=== PATIENT | male | born 1985 | race Caucasian/White ===

== ENCOUNTER → 2018-03-17 08:57 | Outpatient (POV) | payer BC, SELFPAY | PROVIDERS: Family Provider Emergency Medicine; PCP Emergency Medicine; Visit Provider Dentist | DX: Z00.00 Encounter for general adult medical examination without abnormal findings (principal) ==

== ENCOUNTER 2018-04-14 21:06 | Observation (INO) ==
[2018-04-14 22:00] LABS: Basophils # 0.1 K/mm3 (0-0.2); Basophils % 1.6 % (0.1-2.0); Eosinophils # 0.1 K/mm3 (0.0-0.4); Eosinophils % 2.1 % (0.1-12.0); Hemoglobin 13.2 g/dL (14.1-18.0); Lymphocytes # 2.2 K/mm3 (0.7-4.5); Lymphocytes % 39.7 K/mm3 (10-50); Mean Corpuscular HGB Conc 32.1 g/dL (31.8-35.4); Mean Corpuscular Hemoglobin 27.2 pg (27.0-31.2); Mean Corpuscular Volume 84.7 fl (80-94); Mean Platelet Volume 9.3 fl (7.4-10.4); Monocytes # 0.3 K/mm3 (0.1-1.0); Monocytes % 5.1 % (1.7-9.3); Neutrophils # 2.8 K/mm3 (1.8-7.8); Neutrophils % 51.6 % (37.0-80.0); Platelet Count 213 K/mm3 (142-424); Red Blood Count 4.84 M/mm3 (4.60-6.20); Red Cell Distribution Width 12.6 % (11.5-17.5); White Blood Count 5.4 K/mm3 (4.8-10.8)
[2018-04-14 22:13] LABS: Albumin Level 3.8 gm/dL (3.4-5.0); Anion Gap 15.8 mEq/L (5-15); Bilirubin,Direct 0.2 mg/dL (0.0-0.2); Bilirubin,Indirect 0.7 mg/dL (0.0-0.9); Bilirubin,Total 0.9 mg/dL (0.2-1.0); Calcium 8.7 mg/dL (8.5-10.1); Potassium 3.8 mmoL/L (3.5-5.1); Total Protein,Serum 7.5 gm/dL (6.4-8.2)
[2018-04-14 22:18] LABS: Amylase 19 U/L (25-125)
--- NOTE | 2018-04-15 00:31 | Emergency Department Note ---
ED Disposition Clinical Impression: DKA (diabetic ketoacidoses) Qualifiers: Diabetes mellitus type: type 1 Diabetes mellitus complication detail: without coma Qualified Code(s): E10.10 - Type 1 diabetes mellitus with ketoacidosis without coma Diabetes mellitus, insulin dependent (IDDM), uncontrolled Qualifiers: Diabetes mellitus complication status: with unspecified complications Qualified Code(s): E10.8 - Type 1 diabetes mellitus with unspecified complications; E10.65 - Type 1 diabetes mellitus with hyperglycemia ADHD Qualifiers: Attention deficit-hyperactivity disorder type: unspecified Qualified Code(s): F90.9 - Attention-deficit hyperactivity disorder, unspecified type Disposition: Admitted as Observation Condition on Discharge: Good - Critical Care Critical Care Time: No Attestation: On 04/14/18, the high probability of a clinically significant, sudden or life threatening deterioration of the following system(s) required my full and direct attention, intervention and personal management. The time I documented below is in addition to time spent performing reported procedures but includes the following listed in this critical care notation. Medical Decision Making - Medical Records Medical records reviewed: Yes: I reviewed the patient's medical records. - Reilly Inquiry Pt receiving controlled substance: No Vital Signs: 04/14/18 21:15 04/14/18 21:41 Temperature 99.1 F 98.2 F Temperature Source Oral Oral Pulse Rate [Right Radial] 90 96 H Respiratory Rate 12 18 Blood Pressure [Right Arm] 155/101 159/97 Blood Pressure Mean [Right Arm] 119 117 Blood Pressure Source [Right Arm] Automatic Cuff Automatic Cuff Blood Pressure Position [Right Arm] Supine Sitting 02 Sat by Pulse Oximetry 100 96 Oxygen Delivery Method Room Air Room Air - Lab Data Lab results reviewed: Yes: I reviewed the patient's lab results. Lab Results 04/14/18 21:50: Troponin I < 0.02, Amylase 19 L 04/14/18 21:50: WBC 5.4, RBC 4.84, Hgb 13.2 L, Hct 41.0 L, MCV 84.7, MCH 27.2, MCHC 32.1, RDW 12.6, Plt Count 213, MPV 9.3, Neut % (Auto) 51.6, Lymph % (Auto) 39.7, [place] % (Auto) 5.1, Eos % (Auto) 2.1, Baso % (Auto) 1.6, Neut # (Auto) 2.8 , Lymph # (Auto) 2.2, [place] # (Auto) 0.3, Eos # (Auto) 0.1, Baso # (Auto) 0.1 04/14/18 21:50: Sodium 137, Potassium 3.8, Chloride 103, Carbon Dioxide 22, Anion Gap 15.8 H, BUN 11, Creatinine 1.13, Estimated Creat Clear 82, Estimated GFR 75, Est GFR ( Amer) 91, Glucose 486 H*, Calcium 8.7, Total Bilirubin 0.9, Direct Bilirubin 0.2, Indirect Bilirubin 0.7, AST 14 L, ALT 23, Alkaline Phosphatase 74, Total Protein 7.5, Albumin 3.8, Lipase 67 L 04/14/18 21:50: Lactic Acid 1.4 04/14/18 21:50: Acetone Level Small Result diagrams: 04/14/18 21:50 04/14/18 21:50 Orders (Tests/Meds): ED MEDICATIONS Discontinued Medications Generic Name Dose Route Start Last Admin Trade Name Servandoq PRN Reason Stop Dose Admin Sodium Chloride 1,000 mls @ 999 mls/hr 04/14/18 21:30 04/14/18 21:45 Sod Chlor 0.9% 1000ml Bag IV 04/14/18 22:30 999 mls/hr .Q1H1M JENNY Administration Sodium Chloride 1,000 mls @ 999 mls/hr 04/14/18 23:30 04/14/18 23:23 Sod Chlor 0.9% 1000ml Bag IV 04/15/18 00:30 999 mls/hr .Q1H1M JENNY Administration Sodium Chloride 1,000 mls @ 999 mls/hr 04/15/18 00:45 04/15/18 00:45 Sod Chlor 0.9% 1000ml Bag IV 04/15/18 01:45 999 mls/hr .Q1H1M JENNY Administration Insulin Human Regular 5 unit 04/15/18 00:30 04/15/18 00:44 Humulin R Insulin 100 Units/Ml 10ml Vial IVP 04/15/18 00:31 5 unit ONCE ONE Administration - Radiology Data #1 Image(s): Chest Image Reviewed: Yes I reviewed the patient's radiology image Preliminary Findings: Normal/NAD - CT Data CT Scan: Head Time Received: 02:[address] Reviewed: Yes: I have viewed the radiologist's interpretation Preliminary Findings: Normal/NAD Psych HPI - General Chief Complaint: Psychiatric Symptoms Stated Complaint: phsychiatric Time Seen by Provider: 04/15/18 00:29 Mode of Arrival: EMS Source of Information: Patient, Relative, Medical Record Description of Symptoms (Recalled from ER Triage Doc. by RN): pt was told today by psych that he should not stop taking his concerta for anger issues since wednesday, initially using broken speach that disappears when he gets agitated. says his feet are numb. blood sugar was 439, also did not take his lisinopril today - History of Present Illness HPI Narrative: iddm with change in mental status with dec po intake - he reports being compliant with meds and diet - saw chino and changing meds MD complaint: altered mental status Onset (ago): hour(s) Duration: resolved prior to arrival History of same: No Relieving factors: none Exacerbating factors: none, medication Context: significant life stressor Associated psychiatric symptoms: racing thoughts Treatments prior to arrival: none - Related Data Home Medications Medication Instructions Recorded Confirmed lisinopril 2.5 mg tablet 2.5 mg PO DAILY tab 12/29/17 04/14/18 methylphenidate ER 18 mg 18 mg PO QAM 12/29/17 04/14/18 tablet,extended release 24 hr simvastatin 5 mg tablet 5 mg PO QPM 12/29/17 04/14/18 Insulin Glargine,Hum.rec.anlog 60 unit SUB-Q QAM 01/31/18 04/14/18 [Basaglar Kwikpen U-100] Insulin Regular, Human [Humulin R 10 unit SUB-Q .with each meal 01/31/18 U-500 Kwikpen] Clindamycin HCl [Clindamycin 300mg 300 mg PO Q8H 03/13/18 03/22/18 Cap] Previous Rx's Medication Instructions Recorded Naproxen [Naprosyn 500mg tablet] 500 mg PO BID PRN #20 tab 03/05/18 Naproxen [Naprosyn 500mg tablet] 500 mg PO BID PRN #20 tab 03/22/18 Allergies Allergy/AdvReac Type Severity Reaction Status Date / Time Penicillins [PENICILLINS] Allergy Unknown Verified 03/13/18 12:18 [facility] History I have reviewed the patient's past medical history: Yes Medical History: Reports:: Anxiety, Diabetes Mellitus Type 1, Hyperlipidemia, Hypertension Denies:: Cancer, Diabetes Mellitus Type 2, MRSA Other Surgeries: Yes: No Previous Surgery Amputation: No Fractures: No - Social History Smoking Status: Never smoker Alcohol Intake: never Substance Use Type: denies use Occupational Status: unemployed Housing: apartment Household Members: none - Psychiatric History Expresses thoughts of harming self/others: None Suicide Plan Description: No Plan Pschychiatric History:: Reports:: Anxiety Family Hx:: Diabetes, Hypertension ROS Obtained: Yes All systems reviewed & no additional complaints - Constitutional Constitutional: Denies fever(s) - Eyes Eyes: Denies change in vision - ENT Ears, Nose, Mouth, and Throat: Denies sore throat - Cardiovascular Cardiovascular: Denies chest pain - Respiratory Respiratory: No cough - Gastrointestinal Gastrointestingal: Denies: abdominal pain - Genitourinary Male Genitourinary: Denies flank pain, Denies hematuria - Musculoskeletal Musculoskeletal: Denies joint pain, Denies joint swelling - Integumentary/Breasts Skin/Breast: Denies rash - Neurologic Neurologic: Denies headache(s), Denies seizure-like activity Physical Exam - General General appearance: in no apparent distress - Head Head exam: normocephalic - Eye Eye exam: Present: PERRL, EOMI. Absent: scleral icterus - ENT ENT exam: Present: mucous membranes dry - Neck Neck exam: Present: trachea midline - Respiratory Respiratory exam: Present: normal lung sounds bilaterally. Absent: respiratory distress - Cardiovascular Cardiovascular exam: Present: regular rate. Absent: systolic murmur - Abdominal Exam Abdominal exam: Present: soft - Extremities Exam Extremities exam: Present: full ROM - Back Exam Back exam: Present: normal inspection - Neurological Exam Neurological exam: Present: alert, oriented X3, CN II-XII intact - Psychiatric Psychiatric exam: Present: normal affect - Skin Skin exam: Absent: rash
[2018-04-15 06:43] LABS: Basophils # 0.1 K/mm3 (0-0.2); Basophils % 1.2 % (0.1-2.0); Eosinophils # 0.2 K/mm3 (0.0-0.4); Eosinophils % 3.4 % (0.1-12.0); Lymphocytes # 2.1 K/mm3 (0.7-4.5); Lymphocytes % 40.4 K/mm3 (10-50); Mean Corpuscular HGB Conc 32.7 g/dL (31.8-35.4); Mean Corpuscular Hemoglobin 27.5 pg (27.0-31.2); Mean Corpuscular Volume 84.2 fl (80-94); Monocytes # 0.3 K/mm3 (0.1-1.0); Monocytes % 5.4 % (1.7-9.3); Neutrophils # 2.6 K/mm3 (1.8-7.8); Neutrophils % 49.6 % (37.0-80.0); Platelet Count 206 K/mm3 (142-424); Red Cell Distribution Width 12.7 % (11.5-17.5); White Blood Count 5.2 K/mm3 (4.8-10.8)
[2018-04-15 06:45] LABS: Anion Gap 9.1 mEq/L (5-15); Blood Urea Nitrogen 8 mg/dL (7-18); Carbon Dioxide 24 mmol/L (21.0-32.0); Chloride 113 mmol/L (98-107); Glucose 187 mg/dL (74-106); Potassium 3.1 mmoL/L (3.5-5.1); Sodium 143 mmol/L (136-145)
[2018-04-15 07:00] LABS: Calcium 7.4 mg/dL (8.5-10.1)
[2018-04-15 07:02] LABS: Hematocrit 35.7 % (42.0-52.0); Hemoglobin 11.6 g/dL (14.1-18.0)
[2018-04-15 07:21] LABS: Acetone, Serum (Rapid) None Detected (None Detect)
[2018-04-15 08:32] VITALS: BP 153/93
--- NOTE | 2018-04-15 08:40 | H&P/Discharge Summary ---
General - General Admission date:: 04/15/18 Discharge date: 04/15/18 *Admission Date: 04/15/18 *Chief complaint: dka *History of present illness: this wm who has iddm and reported compliance with diet and meds presented to ed with change in mental status and elevated glu- he had seen his pschy and meds were changed - he has no fever or rash - [facility] History I have reviewed the patient's past medical history: Yes Medical History: Reports:: Anxiety, Diabetes Mellitus Type 1, Hyperlipidemia, Hypertension Denies:: Cancer, Diabetes Mellitus Type 2, MRSA Other Surgeries: Yes: No Previous Surgery Amputation: No Fractures: No - *Social History Smoking Status: Never smoker Alcohol Intake: never Substance Use Type: denies use Occupational Status: unemployed Housing: apartment Household Members: none - Psychiatric History Expresses thoughts of harming self/others: None Suicide Plan Description: No Plan Pschychiatric History:: Reports:: Anxiety *Family Hx:: Diabetes, Hypertension Review of Systems - Review of Systems Review of systems:: pertinent systems reviewed and negative unless documented below - Constitutional Denies headache(s) - Eyes Denies change in vision - ENT Denies sore throat - *Cardiovascular Denies chest pain at rest - *Respiratory Denies cough - *Gastrointestinal Denies vomiting - *Genitourinary Denies blood in urine - *Musculoskeletal Denies joint pain, Denies joint swelling - Integumentary/Breasts Denies rash - *Neurologic Denies headache(s), Denies seizure-like activity - Psychiatric Reports anxiety Exam Vital signs and Labs for Last 24 Hours: Temp Pulse Resp BP Pulse Ox 97.8 F 104 H 18 153/93 98 04/15/18 08:00 04/15/18 08:00 04/15/18 08:00 04/15/18 08:00 04/15/18 08:00 Laboratory Results - last 24 hr 04/14/18 21:50: Troponin I < 0.02, Amylase 19 L 04/14/18 21:50: WBC 5.4, RBC 4.84, Hgb 13.2 L, Hct 41.0 L, MCV 84.7, MCH 27.2, MCHC 32.1, RDW 12.6, Plt Count 213, MPV 9.3, Neut % (Auto) 51.6, Lymph % (Auto) 39.7, [place] % (Auto) 5.1, Eos % (Auto) 2.1, Baso % (Auto) 1.6, Neut # (Auto) 2.8 , Lymph # (Auto) 2.2, [place] # (Auto) 0.3, Eos # (Auto) 0.1, Baso # (Auto) 0.1 04/14/18 21:50: Sodium 137, Potassium 3.8, Chloride 103, Carbon Dioxide 22, Anion Gap 15.8 H, BUN 11, Creatinine 1.13, Estimated Creat Clear 82, Estimated GFR 75, Est GFR ( Amer) 91, Glucose 486 H*, Calcium 8.7, Total Bilirubin 0.9, Direct Bilirubin 0.2, Indirect Bilirubin 0.7, AST 14 L, ALT 23, Alkaline Phosphatase 74, Total Protein 7.5, Albumin 3.8, Lipase 67 L 04/14/18 21:50: Lactic Acid 1.4 04/14/18 21:50: Acetone Level Small 04/15/18 01:40: Troponin I < 0.02 04/15/18 01:47: POC Glucose 119 H 04/15/18 01:50: Acetone Level None detected 04/15/18 05:28: POC Glucose 173 H 04/15/18 05:59: WBC 5.2, RBC 4.20 L, Hgb 11.6 L D, Hct 35.7 L, MCV 84.2, MCH 27.5, MCHC 32.7, RDW 12.7, Plt Count 206, MPV 9.0, Neut % (Auto) 49.6, Lymph % ( Auto) 40.4, [place] % (Auto) 5.4, Eos % (Auto) 3.4, Baso % (Auto) 1.2, Neut # (Auto ) 2.6, Lymph # (Auto) 2.1, [place] # (Auto) 0.3, Eos # (Auto) 0.2, Baso # (Auto) 0.1 04/15/18 05:59: Sodium 143, Potassium 3.1 L, Chloride 113 H, Carbon Dioxide 24, Anion Gap 9.1, BUN 8 D, Creatinine 0.79 D, Estimated Creat Clear 123, Estimated GFR 114, Est GFR ( Amer) 138 D, Glucose 187 H D, Calcium 7.4 L D, Acetone Level None detected I & O for Last 24 hours: Intake & Output 04/12/18 04/13/18 04/14/18 04/15/18 11:59 11:59 11:59 11:59 Intake Total 394 / 394 Balance 394 / 394 Weight 142 lb 4 oz - *Routine HEENT Exam Head: Present: normocephalic Eye: Present: EOMI, PERRL ENT: Present: mucous membranes dry - *Routine Neck Exam Present: supple - *Routine Respiratory Exam Present: CTA bilaterally - *Routine Cardiovascular Exam Present: murmur - *Routine Abdominal Exam Present: soft - *Routine Skin Exam Present: intact - *Routine Neurological Exam Present: alert, oriented X3, CN II-XII intact - Routine Psychiatric Exam Present: normal affect Hospital Course Hospital Course: who has been doing better with ivf and has stable labs this am Results Labs on day of discharge: Labs from last 24 hours 04/15/18 04/15/18 04/15/18 05:59 05:59 05:28 WBC 5.2 RBC 4.20 L Hgb 11.6 L D Hct 35.7 L MCV 84.2 MCH 27.5 MCHC 32.7 RDW 12.7 Plt Count 206 MPV 9.0 Neut % (Auto) 49.6 Lymph % (Auto) 40.4 [place] % (Auto) 5.4 Eos % (Auto) 3.4 Baso % (Auto) 1.2 Neut # (Auto) 2.6 Lymph # (Auto) 2.1 [place] # (Auto) 0.3 Eos # (Auto) 0.2 Baso # (Auto) 0.1 Sodium 143 Potassium 3.1 L Chloride 113 H Carbon Dioxide 24 Anion Gap 9.1 BUN 8 D Creatinine 0.79 D Estimated Creat Clear 123 Estimated GFR 114 Est GFR ( Amer) 138 D Glucose 187 H D POC Glucose 173 H Lactic Acid Calcium 7.4 L D Total Bilirubin Direct Bilirubin Indirect Bilirubin AST ALT Alkaline Phosphatase Troponin I Total Protein Albumin Amylase Lipase Acetone Level None detected 04/15/18 04/15/18 04/15/18 01:50 01:47 01:40 WBC RBC Hgb Hct MCV MCH MCHC RDW Plt Count MPV Neut % (Auto) Lymph % (Auto) [place] % (Auto) Eos % (Auto) Baso % (Auto) Neut # (Auto) Lymph # (Auto) [place] # (Auto) Eos # (Auto) Baso # (Auto) Sodium Potassium Chloride Carbon Dioxide Anion Gap BUN Creatinine Estimated Creat Clear Estimated GFR Est GFR ( Amer) Glucose POC Glucose 119 H Lactic Acid Calcium Total Bilirubin Direct Bilirubin Indirect Bilirubin AST ALT Alkaline Phosphatase Troponin I < 0.02 Total Protein Albumin Amylase Lipase Acetone Level None detected 04/14/18 04/14/18 04/14/18 21:50 21:50 21:50 WBC RBC Hgb Hct MCV MCH MCHC RDW Plt Count MPV Neut % (Auto) Lymph % (Auto) [place] % (Auto) Eos % (Auto) Baso % (Auto) Neut # (Auto) Lymph # (Auto) [place] # (Auto) Eos # (Auto) Baso # (Auto) Sodium 137 Potassium 3.8 Chloride 103 Carbon Dioxide 22 Anion Gap 15.8 H BUN 11 Creatinine 1.13 Estimated Creat Clear 82 Estimated GFR 75 Est GFR ( Amer) 91 Glucose 486 H* POC Glucose Lactic Acid 1.4 Calcium 8.7 Total Bilirubin 0.9 Direct Bilirubin 0.2 Indirect Bilirubin 0.7 AST 14 L ALT 23 Alkaline Phosphatase 74 Troponin I Total Protein 7.5 Albumin 3.8 Amylase Lipase 67 L Acetone Level Small 04/14/18 04/14/18 21:50 21:50 WBC 5.4 RBC 4.84 Hgb 13.2 L Hct 41.0 L MCV 84.7 MCH 27.2 MCHC 32.1 RDW 12.6 Plt Count 213 MPV 9.3 Neut % (Auto) 51.6 Lymph % (Auto) 39.7 [place] % (Auto) 5.1 Eos % (Auto) 2.1 Baso % (Auto) 1.6 Neut # (Auto) 2.8 Lymph # (Auto) 2.2 [place] # (Auto) 0.3 Eos # (Auto) 0.1 Baso # (Auto) 0.1 Sodium Potassium Chloride Carbon Dioxide Anion Gap BUN Creatinine Estimated Creat Clear Estimated GFR Est GFR ( Amer) Glucose POC Glucose Lactic Acid Calcium Total Bilirubin Direct Bilirubin Indirect Bilirubin AST ALT Alkaline Phosphatase Troponin I < 0.02 Total Protein Albumin Amylase 19 L Lipase Acetone Level DS: Diagnosis - Discharge Diagnosis (1) DKA (diabetic ketoacidoses) Status: Acute (2) Diabetes mellitus, insulin dependent (IDDM), uncontrolled Status: Acute (3) ADHD Status: Chronic Discharge Medications Discharge Medications: Home Medications Medication Instructions Recorded Confirmed Type lisinopril 2.5 mg tablet 2.5 mg PO DAILY tab 12/29/17 04/14/18 History methylphenidate ER 18 mg 18 mg PO QAM 12/29/17 04/14/18 History tablet,extended release 24 hr simvastatin 5 mg tablet 5 mg PO QPM 12/29/17 04/14/18 History Insulin Glargine,Hum.rec.anlog 60 unit SUB-Q QAM 01/31/18 04/14/18 History [Basaglar Kwikpen U-100] Insulin Regular, Human [Humulin R 10 unit SUB-Q .with each meal 01/31/18 History U-500 Kwikpen] Clindamycin HCl [Clindamycin 300mg 300 mg PO Q8H 03/13/18 03/22/18 History Cap] Disposition Disposition: Home, Self-Care
== END 2018-04-15 09:24 | disposition home or self-care (01) ==
LOC: ER 21:06 → 2ND 21:06
PROVIDERS: ADMIT Emergency Medicine; ATTEND Emergency Medicine
CPT/HCPCS: 70450; 71020; 71046; 80048; 80076; 82009; 82150; 82962; 83605; 83690; 84484; 85025; 93005; 96365; 96367; 96375; 99284; G0378

== ENCOUNTER → 2018-05-30 14:28 | Outpatient (REF) | payer BC, SELFPAY ==
[2018-05-30 18:41] LABS: Basophils # 0.1 K/mm3 (0-0.2); Basophils % 1.1 % (0.1-2.0); Eosinophils # 0.1 K/mm3 (0.0-0.4); Eosinophils % 1.2 % (0.1-12.0); Hemoglobin 15.8 g/dL (14.1-18.0); Lymphocytes # 1.3 K/mm3 (0.7-4.5); Lymphocytes % 21.6 K/mm3 (10-50); Mean Corpuscular Hemoglobin 28.2 pg (27.0-31.2); Mean Corpuscular Volume 85.6 fl (80-94); Mean Platelet Volume 10.6 fl (7.4-10.4); Monocytes # 0.3 K/mm3 (0.1-1.0); Monocytes % 5.4 % (1.7-9.3); Neutrophils # 4.3 K/mm3 (1.8-7.8); Neutrophils % 70.8 % (37.0-80.0); Platelet Count 317 K/mm3 (142-424); Red Blood Count 5.61 M/mm3 (4.60-6.20); Red Cell Distribution Width 13.1 % (11.5-17.5); White Blood Count 6.1 K/mm3 (4.8-10.8)
[2018-05-30 19:00] LABS: Hemoglobin A1C 11.7 % (0.0-7.0)
[2018-05-30 19:03] LABS: Alanine Aminotransferase 32 U/L (12-78); Albumin Level 4.1 gm/dL (3.4-5.0); Alkaline Phosphatase 95 U/L (46-116); Anion Gap 15.5 mEq/L (5-15); Aspartate Amino Transferase 16 U/L (15-37); Bilirubin,Total 0.6 mg/dL (0.2-1.0); Blood Urea Nitrogen 10 mg/dL (7-18); Calcium 9.4 mg/dL (8.5-10.1); Carbon Dioxide 26 mmol/L (21.0-32.0); Chloride 97 mmol/L (98-107); Chol/HDL Ratio 3.7 (1-3.5); Cholesterol 161 mg/dL (140-200); Creatinine,Serum 1.21 mg/dL (0.70-1.30); Estimated Glomerular Filt Rate 69 ml/min (>60); GFR (African American) 84 ML/MIN (>60); Globulin 4.1 gm/dl (1.3-3.2); HDL Cholesterol 43 mg/dL (27-67); LDL Cholesterol 90 mg/dL (0-130); Potassium 4.5 mmoL/L (3.5-5.1); Sodium 134 mmol/L (136-145); T4 (Thyroxine) 10.4 ug/dl (4.7-13.3); Thyroid Stimulating Hormone 0.73 uIU/ml (0.358-3.740); Total Protein,Serum 8.2 gm/dL (6.4-8.2); Triglycerides 141 mg/dL (30-200); VLDL Cholesterol 28 mg/dL (0-40)
[2018-05-30 19:22] LABS: Glucose 526 mg/dL (74-106)
[2018-06-01 10:15] LABS: Creatinine, Urine 103.9 mg/dL (Not Estab.)
[2018-06-01 14:52] LABS: Vitamin D 25 Hydroxy 21.8 ng/mL (30.0-100.0)
[2018-06-01 14:53] LABS: Microalbumin, Urine 685.4 ug/mL (Not Estab.)
== END ==
LOC: LAB 14:28
PROVIDERS: Visit Provider Nurse Practitioner Family
DX: E11.9 Type 2 diabetes mellitus without complications (principal)
CPT/HCPCS: 80053; 80061; 82043; 82570; 82652; 83036; 84436; 84443; 85025

== ENCOUNTER → 2018-11-18 13:23 | Outpatient (CLI) | payer BC, SELFPAY ==
[2018-11-18 13:35] LABS: Basophils # 0.1 K/mm3 (0-0.2); Basophils % 1.5 % (0.1-2.0); Eosinophils # 0.1 K/mm3 (0.0-0.4); Eosinophils % 1.9 % (0.1-12.0); Hematocrit 44.8 % (42.0-52.0); Hemoglobin 14.5 g/dL (14.1-18.0); Lymphocytes # 1.6 K/mm3 (0.7-4.5); Lymphocytes % 32.6 % (10-50); Mean Corpuscular HGB Conc 32.3 g/dL (31.8-35.4); Mean Corpuscular Volume 83.8 fl (80-94); Mean Platelet Volume 8.9 fl (7.4-10.4); Monocytes # 0.3 K/mm3 (0.1-1.0); Monocytes % 5.3 % (1.7-9.3); Neutrophils # 2.9 K/mm3 (1.8-7.8); Neutrophils % 58.6 % (37.0-80.0); Platelet Count 306 K/mm3 (142-424); Red Blood Count 5.35 M/mm3 (4.60-6.20); White Blood Count 4.9 K/mm3 (4.8-10.8)
[2018-11-18 13:47] LABS: Hemoglobin A1C 9.9 % (0.0-7.0)
[2018-11-18 14:26] LABS: Alanine Aminotransferase 65 U/L (12-78); Albumin Level 3.3 gm/dL (3.4-5.0); Albumin/Globulin Ratio 0.9 (1.1-1.8); Alkaline Phosphatase 79 U/L (46-116); Anion Gap 12.2 mEq/L (5-15); Aspartate Amino Transferase 34 U/L (15-37); Bilirubin,Total 0.5 mg/dL (0.2-1.0); Blood Urea Nitrogen 9 mg/dL (7-18); Calcium 9.3 mg/dL (8.5-10.1); Carbon Dioxide 30 mmol/L (21.0-32.0); Chloride 102 mmol/L (98-107); Creatinine,Serum 0.98 mg/dL (0.70-1.30); Estimated Glomerular Filt Rate 89 ml/min (>60); GFR (African American) 107 ML/MIN (>60); Globulin 3.7 gm/dl (1.3-3.2); Glucose 194 mg/dL (74-106); Potassium 4.2 mmoL/L (3.5-5.1); Sodium 140 mmol/L (136-145); T4 (Thyroxine) 8.8 ug/dl (4.7-13.3); Thyroid Stimulating Hormone 0.57 uIU/ml (0.358-3.740)
[2018-11-22 09:53] LABS: Vitamin D 25 Hydroxy 7.1 ng/mL (30.0-100.0)
== END ==
PROVIDERS: Visit Provider Emergency Medicine
DX: E11.9 Type 2 diabetes mellitus without complications (principal)
CPT/HCPCS: 80053; 82652; 83036; 84436; 84443; 85025

== ENCOUNTER 2019-01-09 10:00 | Outpatient (RCR) | payer BC, SELFPAY | END 2019-01-31 09:28 | disposition home or self-care (01) | LOC: PT 10:00 | PROVIDERS: Visit Provider Nurse Practitioner Family | DX: G44.209 Tension-type headache, unspecified, not intractable (principal) | CPT/HCPCS: 97110; 97140; 97163 ==

== ENCOUNTER → 2019-01-09 13:53 | Outpatient (POV) | payer BC, SELFPAY | PROVIDERS: Visit Provider Specialist | DX: M79.641 Pain in right hand (principal) | CPT/HCPCS: 95886; 95908 ==

== ENCOUNTER → 2019-06-21 11:18 | Outpatient (CLI) | payer BC, SELFPAY ==
[2019-06-21 14:12] LABS: Basophils # 0.1 K/mm3 (0-0.2); Basophils % 0.7 % (0.1-2.0); Eosinophils # 0.3 K/mm3 (0.0-0.4); Eosinophils % 4.9 % (0.1-12.0); Hematocrit 38.4 % (42.0-52.0); Hemoglobin 12.5 g/dL (14.1-18.0); Lymphocytes % 29.3 % (10-50); Mean Corpuscular HGB Conc 32.5 g/dL (31.8-35.4); Mean Corpuscular Hemoglobin 28.5 pg (27.0-31.2); Mean Corpuscular Volume 87.5 fl (80-94); Mean Platelet Volume 8.9 fl (7.4-10.4); Monocytes # 0.4 K/mm3 (0.1-1.0); Monocytes % 6.5 % (1.7-9.3); Neutrophils % 58.6 % (37.0-80.0); Platelet Count 302 K/mm3 (142-424); Red Blood Count 4.38 M/mm3 (4.60-6.20); Red Cell Distribution Width 13.3 % (11.5-17.5); White Blood Count 6.9 K/mm3 (4.8-10.8)
[2019-06-21 15:23] LABS: Alanine Aminotransferase 51 U/L (12-78); Albumin Level 3.3 gm/dL (3.4-5.0); Albumin/Globulin Ratio 0.9 (1.1-1.8); Alkaline Phosphatase 73 U/L (46-116); Anion Gap 13.6 mEq/L (5-15); Aspartate Amino Transferase 29 U/L (15-37); Bilirubin,Total 0.3 mg/dL (0.2-1.0); Blood Urea Nitrogen 12 mg/dL (7-18); Calcium 9.1 mg/dL (8.5-10.1); Carbon Dioxide 27 mmol/L (21.0-32.0); Chloride 101 mmol/L (98-107); Creatinine,Serum 1.08 mg/dL (0.70-1.30); Estimated Glomerular Filt Rate 79 ml/min (>60); Free Thyroxine Index 3.1 ug/dL (5.93-13.13); GFR (African American) 95 ML/MIN (>60); Globulin 3.5 gm/dl (1.3-3.2); Glucose 243 mg/dL (74-106); Potassium 4.6 mmoL/L (3.5-5.1); Sodium 137 mmol/L (136-145); T4 (Thyroxine) 8.7 ug/dl (4.7-13.3); Total Protein,Serum 6.8 gm/dL (6.4-8.2); Triiodothryronine (T3) Uptake 36 % (31-39)
[2019-06-21 16:00] LABS: Amphetamine/Metha Screen,Urine Negative ng/mL (<1000); Barbiturates Screen,Urine Negative ng/mL (<200); Benzodiazepines Screen,Urine Negative ng/mL (<200); Cannabinoid Screen,Urine Negative ng/mL (<50); Cocaine Screen,Urine Negative ng/mL (<300); Methadone Screen,Urine Negative ng/mL (<300); Opiate Screen,Urine Negative ng/mL (<300); Phencyclidine Screen,Urine Negative ng/mL (<25)
== END ==
PROVIDERS: PCP Emergency Medicine; Visit Provider Nurse Practitioner Psychiatric/Mental Health
DX: F90.9 Attention-deficit hyperactivity disorder, unspecified type (principal); F33.0 Major depressive disorder, recurrent, mild
CPT/HCPCS: 36415; 80053; 80305; 84436; 84443; 84479; 85025

== ENCOUNTER → 2019-06-29 13:42 | Outpatient (CLI) | payer BC, SELFPAY ==
--- NOTE | 2019-06-29 14:01 | ECG_ITS ---
APPROVED REPORT Exam: Resting ECG HR:98 bpm ECG Measurements Heart Rate 98 AXES [place] 122 P 55 QRSd 88 QRS 35 QT 352 T 65 QTc 449 <Conclusion> Normal sinus rhythm Normal ECG Electronically signed by : Timur Saha, 06/30/2019 09:44:47
== END ==
PROVIDERS: PCP Emergency Medicine; Visit Provider Nurse Practitioner Psychiatric/Mental Health
DX: F90.1 Attention-deficit hyperactivity disorder, predominantly hyperactive type (principal)
CPT/HCPCS: 93005

== ENCOUNTER → 2019-06-29 17:13 | Outpatient (CLI) | payer BC, SELFPAY ==
[2019-06-29 17:34] LABS: Basophils # 0.1 K/mm3 (0-0.2); Basophils % 1.3 % (0.1-2.0); Eosinophils # 0.2 K/mm3 (0.0-0.4); Eosinophils % 4.4 % (0.1-12.0); Hematocrit 41.5 % (42.0-52.0); Hemoglobin 13.1 g/dL (14.1-18.0); Lymphocytes # 1.6 K/mm3 (0.7-4.5); Lymphocytes % 30.5 % (10-50); Mean Corpuscular HGB Conc 31.5 g/dL (31.8-35.4); Mean Corpuscular Hemoglobin 27.5 pg (27.0-31.2); Mean Corpuscular Volume 87.1 fl (80-94); Mean Platelet Volume 8.5 fl (7.4-10.4); Monocytes # 0.3 K/mm3 (0.1-1.0); Monocytes % 4.6 % (1.7-9.3); Neutrophils # 3.2 K/mm3 (1.8-7.8); Neutrophils % 59.1 % (37.0-80.0); Platelet Count 308 K/mm3 (142-424); Red Blood Count 4.76 M/mm3 (4.60-6.20); Red Cell Distribution Width 14.4 % (11.5-17.5); White Blood Count 5.4 K/mm3 (4.8-10.8)
[2019-06-29 17:51] LABS: Alanine Aminotransferase 28 U/L (12-78); Albumin Level 3.5 gm/dL (3.4-5.0); Albumin/Globulin Ratio 0.9 (1.1-1.8); Alkaline Phosphatase 68 U/L (46-116); Aspartate Amino Transferase 14 U/L (15-37); Bilirubin,Total 0.5 mg/dL (0.2-1.0); Carbon Dioxide 30 mmol/L (21.0-32.0); Chloride 102 mmol/L (98-107); Chol/HDL Ratio 4.4 (1-3.5); Cholesterol 182 mg/dL (140-200); Creatinine,Serum 1.25 mg/dL (0.70-1.30); Estimated Glomerular Filt Rate 67 ml/min (>60); GFR (African American) 80 ML/MIN (>60); Globulin 3.9 gm/dl (1.3-3.2); HDL Cholesterol 41 mg/dL (27-67); LDL Cholesterol 121 mg/dL (0-130); Potassium 4.4 mmoL/L (3.5-5.1); T4 (Thyroxine) 10.2 ug/dl (4.7-13.3); Thyroid Stimulating Hormone 0.55 uIU/ml (0.358-3.740); Total Protein,Serum 7.4 gm/dL (6.4-8.2); Triglycerides 101 mg/dL (30-200); VLDL Cholesterol 20 mg/dL (0-40)
[2019-06-29 18:11] LABS: Calcium 9.2 mg/dL (8.5-10.1); Glucose 158 mg/dL (74-106)
[2019-06-29 18:32] LABS: Anion Gap 11.4 mEq/L (5-15); Blood Urea Nitrogen 14 mg/dL (7-18); Sodium 139 mmol/L (136-145)
[2019-06-29 19:36] LABS: Hemoglobin A1C 8.7 % (0.0-7.0)
[2019-07-01 15:36] LABS: Microalbumin, Urine 1326.1 ug/mL (Not Estab.); Vitamin D 25 Hydroxy 22.6 ng/mL (30.0-100.0)
== END ==
PROVIDERS: Visit Provider Physician Assistant
DX: E11.9 Type 2 diabetes mellitus without complications (principal); J02.0 Streptococcal pharyngitis; Z79.4 Long term (current) use of insulin
CPT/HCPCS: 80053; 80061; 82043; 82652; 83036; 84436; 84443; 85025; 87070; 87186

== ENCOUNTER 2019-07-04 09:19 | Outpatient (CLI) | payer BC, SELFPAY ==
[2019-07-04 09:59] VITALS: BP 137/93; PULSE 89; RESP 18; TEMP 36.6; O2SAT 99
[2019-07-04 10:35] VITALS: BP 154/90; PULSE 86; RESP 18; TEMP 36.6; O2SAT 99
== END 2019-07-04 10:35 | disposition home or self-care (01) ==
LOC: INF 09:22
PROVIDERS: PCP Emergency Medicine; Visit Provider Emergency Medicine
DX: J02.0 Streptococcal pharyngitis (principal)
CPT/HCPCS: 96372

== ENCOUNTER 2019-07-05 09:50 | Outpatient (CLI) | payer BC, SELFPAY ==
[2019-07-05 10:20] VITALS: BP 145/95; PULSE 96; RESP 18; TEMP 36.7
== END 2019-07-05 10:50 | disposition home or self-care (01) ==
LOC: INF 10:11
PROVIDERS: Visit Provider Emergency Medicine
DX: J02.0 Streptococcal pharyngitis (principal)
CPT/HCPCS: 96372

== ENCOUNTER 2019-07-06 10:35 | Outpatient (CLI) | payer BC, SELFPAY ==
[2019-07-06 11:10] VITALS: BP 151/100; PULSE 116; RESP 18; O2SAT 99
== END 2019-07-06 11:25 | disposition home or self-care (01) ==
LOC: INF 10:59
PROVIDERS: PCP Emergency Medicine; Visit Provider Emergency Medicine
DX: J02.0 Streptococcal pharyngitis (principal)
CPT/HCPCS: 96372

== ENCOUNTER 2019-07-07 09:45 | Outpatient (CLI) | payer BC, SELFPAY ==
[2019-07-07 10:04] VITALS: BP 148/84; PULSE 102; RESP 17; TEMP 36.7; O2SAT 100
== END 2019-07-07 10:12 | disposition home or self-care (01) ==
LOC: INF 09:55
PROVIDERS: Visit Provider Emergency Medicine
DX: J02.0 Streptococcal pharyngitis (principal)
CPT/HCPCS: 96372

== ENCOUNTER → 2019-07-08 08:18 | Outpatient (CLI) | payer BC, SELFPAY ==
[2019-07-08 08:29] VITALS: BP 139/83; PULSE 101; RESP 16; TEMP 37; O2SAT 99; BMI 22.9
== END ==
PROVIDERS: PCP Emergency Medicine; Visit Provider Emergency Medicine
DX: J02.0 Streptococcal pharyngitis (principal)
CPT/HCPCS: 96372

== ENCOUNTER → 2019-07-09 15:26 | Outpatient (CLI) | payer BC, SELFPAY ==
[2019-07-09 15:51] VITALS: BP 150/88; PULSE 110; RESP 16; TEMP 36.7; O2SAT 98
== END ==
PROVIDERS: PCP Emergency Medicine; Visit Provider Emergency Medicine
DX: J02.0 Streptococcal pharyngitis (principal)
CPT/HCPCS: 96372

== ENCOUNTER 2019-07-10 11:23 | Outpatient (CLI) | payer BC, SELFPAY ==
[2019-07-10 11:39] VITALS: BP 149/82; PULSE 95; RESP 18; TEMP 36.7; O2SAT 98
[2019-07-10 11:50] VITALS: BP 132/79; PULSE 89; RESP 18; TEMP 36.6; O2SAT 99
== END 2019-07-10 11:55 | disposition home or self-care (01) ==
LOC: INF 11:23
PROVIDERS: Visit Provider Emergency Medicine
DX: J02.0 Streptococcal pharyngitis (principal)
CPT/HCPCS: 96372

== ENCOUNTER → 2020-04-02 17:29 | Outpatient (CLI) | payer BC, SELFPAY ==
[2020-04-02 18:07] LABS: Basophils # 0.1 K/mm3 (0-0.2); Basophils % 1.1 % (0.1-2.0); Eosinophils # 0.3 K/mm3 (0.0-0.4); Eosinophils % 5.5 % (0.1-12.0); Hemoglobin 14.1 g/dL (14.1-18.0); Lymphocytes # 1.7 K/mm3 (0.7-4.5); Lymphocytes % 27.7 % (10-50); Mean Corpuscular HGB Conc 35.3 g/dL (31.8-35.4); Mean Corpuscular Hemoglobin 30.1 pg (27.0-31.2); Mean Corpuscular Volume 85.1 fl (80-94); Mean Platelet Volume 9.3 fl (7.4-10.4); Monocytes # 0.3 K/mm3 (0.1-1.0); Neutrophils # 3.8 K/mm3 (1.8-7.8); Neutrophils % 61.7 % (37.0-80.0); Platelet Count 298 K/mm3 (142-424); Red Cell Distribution Width 12.7 % (11.5-17.5); White Blood Count 6.2 K/mm3 (4.8-10.8)
[2020-04-02 18:42] LABS: Chloride 93 mmol/L (98-107); Potassium 4.8 mmoL/L (3.5-5.1); Sodium 131 mmol/L (136-145)
[2020-04-02 18:45] LABS: Alanine Aminotransferase 35 U/L (12-78); Albumin Level 4.1 g/dl (3.5-5.0); Albumin/Globulin Ratio 1.3 (1.1-1.8); Alkaline Phosphatase 86 U/L (38-126); Anion Gap 13.8 mEq/L (5-15); Aspartate Amino Transferase 31 U/L (17-59); Bilirubin,Total 0.6 mg/dl (0.2-1.3); Blood Urea Nitrogen 17 mg/dl (9-20); Carbon Dioxide 29 mmol/L (22.0-30.0); Estimated Glomerular Filt Rate 58 ml/min (>60); GFR (African American) 71 ML/MIN (>60); Globulin 3.2 g/dL (1.3-3.2); Total Protein,Serum 7.3 g/dl (6.3-8.2)
[2020-04-02 18:46] LABS: Calcium 9.7 mg/dl (8.4-10.2)
[2020-04-02 18:58] LABS: Creatinine,Urine Random 70 mg/dL (Not Estab.)
[2020-04-02 19:02] LABS: 25-OH Vitamin D, Total 13.8 ng/mL (30-100)
[2020-04-02 19:11] LABS: Glucose 498 mg/dl (74-100)
[2020-04-02 21:28] LABS: Hemoglobin A1C > 14.0 % (4.0-6.0)
[2020-04-02 22:54] LABS: Microalbumin/Creatinine Ratio 1389.4
== END ==
PROVIDERS: Visit Provider Emergency Medicine
DX: E11.9 Type 2 diabetes mellitus without complications (principal); E10.9 Type 1 diabetes mellitus without complications; E55.9 Vitamin D deficiency, unspecified; Z79.4 Long term (current) use of insulin
CPT/HCPCS: 80053; 82043; 82306; 82570; 83036; 84439; 84443; 85025

== ENCOUNTER → 2020-06-21 14:48 | Outpatient (CLI) | payer BC, SELFPAY ==
[2020-06-21 14:52] LABS: Microscopic, Urine URINE MICROSCOPIC (MICROSCOPIC)
[2020-06-21 15:10] LABS: Basophils # 0.1 K/mm3 (0-0.2); Basophils % 1.3 % (0.1-2.0); Eosinophils # 0.5 K/mm3 (0.0-0.4); Eosinophils % 7.6 % (0.1-12.0); Hematocrit 36.7 % (42.0-52.0); Hemoglobin 12.3 g/dL (14.1-18.0); Lymphocytes # 1.7 K/mm3 (0.7-4.5); Lymphocytes % 27.8 % (10-50); Mean Corpuscular HGB Conc 33.5 g/dL (31.8-35.4); Mean Corpuscular Hemoglobin 29.4 pg (27.0-31.2); Mean Corpuscular Volume 87.7 fl (80-94); Mean Platelet Volume 8.9 fl (7.4-10.4); Monocytes # 0.2 K/mm3 (0.1-1.0); Monocytes % 3.8 % (1.7-9.3); Neutrophils # 3.7 K/mm3 (1.8-7.8); Neutrophils % 59.6 % (37.0-80.0); Platelet Count 265 K/mm3 (142-424); Red Blood Count 4.18 M/mm3 (4.60-6.20); Red Cell Distribution Width 12.8 % (11.5-17.5); White Blood Count 6.2 K/mm3 (4.8-10.8)
[2020-06-21 15:17] LABS: Anion Gap 8.4 mEq/L (5-15); Blood Urea Nitrogen 23 mg/dl (9-20); Calcium 8.9 mg/dl (8.4-10.2); Carbon Dioxide 30 mmol/L (22.0-30.0); Chloride 100 mmol/L (98-107); Estimated Glomerular Filt Rate 46 ml/min (>60); GFR (African American) 56 ML/MIN (>60); Phosphorous 4.2 mg/dl (2.5-4.5); Potassium 5.4 mmoL/L (3.5-5.1); Sodium 133 mmol/L (136-145)
[2020-06-21 15:27] LABS: Appearance,Urine CLEAR (Clear); Bilirubin,Urine Negative (Negative); Blood, Urine 2+ (Negative); Color,Urine YELLOW (Yellow); Glucose,Urine (UA) 3+ (Negative); Ketones,Urine Negative (Negative); Leukocyte Esterase,Urine Negative (Negative); Nitrate,Urine Negative (Negative); PH,Urine 5.5 (5.0-8.5); Protein,Urine 2+ (Negative); Specific Gravity, Urine 1.025 (1.005-1.030); Urobilinogen,Urine 0.2 EU/dl (0.2)
[2020-06-21 15:29] LABS: Intact Parathyroid Hormone 52.4 pg/mL (7.5-53.5)
[2020-06-21 15:40] LABS: Creatinine,Urine Random 120 mg/dL (Not Estab.)
[2020-06-21 15:47] LABS: Bacteria,Urine 2+ /lpf
[2020-06-21 15:54] LABS: Glucose 542 mg/dl (74-100)
[2020-06-21 15:57] LABS: 25-OH Vitamin D, Total 35.3 ng/mL (30-100)
== END ==
PROVIDERS: Visit Provider Internal Medicine Nephrology
DX: N18.3 Chronic kidney disease, stage 3 (moderate) (principal)
CPT/HCPCS: 36415; 80069; 81001; 82306; 82570; 83970; 84155; 85025; 87086

== ENCOUNTER → 2020-06-24 14:44 | Outpatient (POV) | payer BC, SELFPAY | PROVIDERS: Visit Provider Internal Medicine Nephrology | DX: Z00.00 Encounter for general adult medical examination without abnormal findings (principal) ==

== ENCOUNTER 2020-07-25 21:47 | Emergency (ER) | payer BC, SELFPAY ==
[2020-07-25 21:57] VITALS: BP 132/71; PULSE 117; RESP 18; TEMP 36.8; O2SAT 98; BMI 25.7
--- NOTE | 2020-07-25 22:01 | XR_ITS ---
PROCEDURE: XR CHEST 2V CLINICAL HISTORY: cough COMPARISON: CR CXR2V XR chest 2V from 04/14/2018 CR Chest from 04/23/2019 FINDINGS: The cardiomediastinal silhouette and pulmonary vascularity are within normal limits. The lungs are clear without infiltrates, suspicious nodules, or pleural effusions. There is bowel interposition under the left hemidiaphragm. No acute bony findings. IMPRESSION: No acute findings. Dictated by: Elbert Mclain MD 07/26/2020 05:20 Elbert Mclain MD in [facility] 07/26/2020 05:20
--- NOTE | 2020-07-25 22:07 | [facility].EDGENADL ---
ED Disposition Clinical Impression: Viral upper respiratory infection Disposition: Home, Self-Care Condition on Discharge: Good Instructions: DI for Viral Upper Respiratory Infection -- Adult Additional Instructions: Tessalon Perles for cough. Follow-up with your primary care provider. Call tomorrow to make appointment. Call back to the emergency department in 2 days to obtain your COVID-19 test result. Quarantine yourself until you obtain your result. Prescriptions: Benzonatate [Tessalon Perle 100mg Cap] 100 mg PO TIDP PRN #20 cap PRN Reason: Cough Transmission Status: Pending to [facility] Referrals: Colt Hoang MD [Primary Care Provider] - - Critical Care Critical Care Time: No Attestation: On 07/25/20, the high probability of a clinically significant, sudden or life threatening deterioration of the following system(s) required my full and direct attention, intervention and personal management. The time I documented below is in addition to time spent performing reported procedures but includes the following listed in this critical care notation. Medical Decision Making - Medical Records Medical records reviewed: Yes: I reviewed the patient's medical records. - Reilly Inquiry Pt receiving controlled substance: No Vital Signs: 07/25/20 21:57 Temperature 98.2 F Temperature Source Oral Pulse Rate [Right Brachial] 117 H Respiratory Rate 18 Blood Pressure [Right Arm] 132/71 Blood Pressure Mean [Right Arm] 91 Blood Pressure Source [Right Arm] Automatic Cuff Blood Pressure Position [Right Arm] Sitting 02 Sat by Pulse Oximetry 98 Oxygen Delivery Method Room Air - Lab Data Lab results reviewed: Yes: I reviewed the patient's lab results. Lab Results 07/25/20 22:15: WBC 6.1, RBC 4.24 L, Hgb 11.8 L, Hct 36.1 L, MCV 85.1, MCH 27.9, MCHC 32.7, RDW 13.5, Plt Count 312, MPV 8.7, Neut % (Auto) 71.6, Lymph % (Auto) 17.4, [place] % (Auto) 6.8, Eos % (Auto) 3.4, Baso % (Auto) 0.8, Neut # (Auto) 4.4, Lymph # (Auto) 1.1, [place] # (Auto) 0.4, Eos # (Auto) 0.2, Baso # (Auto) 0.1 07/25/20 22:15: Sodium 139, Potassium 3.7, Chloride 102, Carbon Dioxide 30, Anion Gap 10.7, BUN 18, Creatinine 1.90 H, Estimated Creat Clear 51, Estimated GFR 41 L, Est GFR ( Amer) 49 L, Glucose 76, Calcium 9.1 07/25/20 22:15: Lactate 0.9 07/25/20 22:30: Influenza Type A Ag Negative, Influenza Type B Ag Negative, SARS-CoV-2 IgG Ab (Rapid) Negative, SARS-CoV-2 IgM Ab (Rapid) Negative Result diagrams: 07/25/20 22:15 07/25/20 22:15 Orders (Tests/Meds): ORDERS Category Date Time Status XR chest 2V Stat Exams 07/25/20 22:01 Ordered Covid-19 Nasal PCR Sendout [facility] Stat Lab 07/25/20 22:19 Ordered Blood Culture Stat Micro 07/25/20 22:15 Received - Radiology Data #1 Image(s): Chest Image Reviewed: Yes I reviewed the patient's radiology image Poor inspiration.: Interposed under left diaphragm, chronic. No acute infiltrate seen. Medical Decision Narrative: No coughing, no respiratory difficulty noted during the patient's entire emergency department stay. Speech is normal. Discussed results with patient. Work-up here is negative. He sounds frustrated because this has been going on for quite a long time. States he cannot tolerate coughing and difficulty breathing when he lays down. He says he has an inhaler that he has been using for the past couple of months which does not help. He says these are the same symptoms that caused me to go into flu last year . He is agreeable to Zaina Jane for his cough. Advised to follow-up with his primary care doctor. Advised to quarantine for until Covid PCR test known. General Adult HPI - General Chief complaint: Shortness of Breath/Dyspnea Stated complaint: Coughing, SOB, Body Aches Time Seen by Provider: 07/25/20 22:08 Mode of Arrival: Family Vehicle Limitations: No Limitations Description of Symptoms (Recalled from ER Triage Doc. by RN): pt describes a cou
[2020-07-25 22:34] LABS: Basophils # 0.1 K/mm3 (0-0.2); Basophils % 0.8 % (0.1-2.0); Eosinophils # 0.2 K/mm3 (0.0-0.4); Eosinophils % 3.4 % (0.1-12.0); Hematocrit 36.1 % (42.0-52.0); Hemoglobin 11.8 g/dL (14.1-18.0); Lymphocytes # 1.1 K/mm3 (0.7-4.5); Lymphocytes % 17.4 % (10-50); Mean Corpuscular HGB Conc 32.7 g/dL (31.8-35.4); Mean Corpuscular Hemoglobin 27.9 pg (27.0-31.2); Mean Corpuscular Volume 85.1 fl (80-94); Mean Platelet Volume 8.7 fl (7.4-10.4); Monocytes # 0.4 K/mm3 (0.1-1.0); Monocytes % 6.8 % (1.7-9.3); Neutrophils # 4.4 K/mm3 (1.8-7.8); Neutrophils % 71.6 % (37.0-80.0); Platelet Count 312 K/mm3 (142-424); Red Blood Count 4.24 M/mm3 (4.60-6.20); Red Cell Distribution Width 13.5 % (11.5-17.5); White Blood Count 6.1 K/mm3 (4.8-10.8)
[2020-07-25 22:37] LABS: Chloride 102 mmol/L (98-107); Potassium 3.7 mmoL/L (3.5-5.1); Sodium 139 mmol/L (136-145)
[2020-07-25 22:40] LABS: Anion Gap 10.7 mEq/L (5-15); Blood Urea Nitrogen 18 mg/dl (9-20); Calcium 9.1 mg/dl (8.4-10.2); Carbon Dioxide 30 mmol/L (22.0-30.0); Creatinine Clearance Estimated 51 mL/min (50-200); Estimated Glomerular Filt Rate 41 ml/min (>60); GFR (African American) 49 ML/MIN (>60); Glucose 76 mg/dl (74-100)
[2020-07-25 22:41] LABS: Lactic Acid 0.9 mmol/L (0.7-2.1)
[2020-07-25 23:05] LABS: Coronavirus 19 IgG Antibody Negative (Negative); Coronavirus 19 IgM Antibody Negative (Negative)
[2020-07-25 23:38] VITALS: BP 123/71; BP 136/68; PULSE 75; PULSE 98; RESP 14; RESP 15; TEMP 36.7; TEMP 36.8; O2SAT 98; O2SAT 99
[2020-07-26 05:27] LABS: Adenovirus,PCR Not Detected (NotDetected); Bordetella Pertussis Not Detected (NotDetected); Chlamydophila Pneumoniae, PCR Not Detected (NotDetected); Coronavirus 229E Not Detected (NotDetected); Coronavirus NL63 Not Detected (NotDetected); Coronavirus OC43 Not Detected (NotDetected); Coronovirus HKU1,PCR Not Detected (NotDetected); Human Metapneumovirus Not Detected (NotDetected); Influenza A, PCR Not Detected (NotDetected); Influenza AH1, 2009 Not Detected (NotDetected); Influenza AH1, PCR Not Detected (NotDetected); Influenza AH3,PCR Not Detected (NotDetected); Influenza B, PCR Not Detected (NotDetected); Mycoplasma Pneumoniae, PCR Not Detected (NotDetected); Parainfluenza 1, PCR Not Detected (NotDetected); Parainfluenza 2, PCR Not Detected (NotDetected); Parainfluenza 3, PCR Not Detected (NotDetected); Parainfluenza 4, PCR Not Detected (NotDetected); Respiratory Syncytial Virus Not Detected (NotDetected); Rhinovirus/Enterovirus Not Detected (NotDetected)
[2020-07-26 07:23] LABS: Coronavirus 19, PCR Detected (NotDetected)
== END 2020-07-25 23:40 | disposition home or self-care (01) ==
PROVIDERS: Emergency Provider Emergency Medicine; PCP Emergency Medicine
DX: U07.1 COVID-19 (principal); I10 Essential (primary) hypertension; Z88.0 Allergy status to penicillin; Z79.899 Other long term (current) drug therapy
CPT/HCPCS: 71046; 80048; 83605; 85025; 86328; 87040; 87275; 87276; 87581; 87633; 87798; 99284; U0003; U0004

== ENCOUNTER 2020-07-31 21:46 | Emergency (ER) | payer BC, SELFPAY ==
[2020-07-31 21:49] VITALS: BP 188/107; PULSE 100; RESP 14; TEMP 37.2; O2SAT 98; BMI 22.6
--- NOTE | 2020-07-31 22:02 | CT_ITS ---
PROCEDURE: CT ABDOMEN PELVIS W CON CLINICAL INDICATION: N/V Nausea, vomiting, COVID 19 positive COMPARISON: CT ABDPELW/O CT ABD PELVIS W/O CONTRAST from 07/03/2017 TECHNIQUE: IV Contrast: 75ML OPTIRAY 350 Oral Contrast None Axial images obtained with sagittal and coronal reformats. All CT scans at the facility use one or more dose reduction, viz: automated exposure control, ma/kV adjustment per patient size (including targeted exams where dose is matched to indication, i.e. head), or iterative reconstruction technique. FINDINGS: LOWER THORAX: There are scattered areas of ground-glass consolidation in both lung bases. This may be related to COVID 19 pneumonia. There is a small hiatal hernia with an air-fluid level in the hiatal hernia/distal esophagus ABDOMEN & PELVIS: The liver, gallbladder, spleen, adrenal glands, and pancreas have an unremarkable appearance. Urinary bladder is distended and there is mild ectasia of the renal collecting system on both sides. There is some minimal prominence of the intrahepatic biliary radicles. The appendix is not clearly delineated. No direct evidence of appendicitis. Multiple unopacified bowel loops in the abdomen or pelvis which could obscure or mimic pathology. If symptoms persist, consider repeat exam with IV and oral contrast.. No intestinal obstruction or free air. There is a small amount fluid in the pelvis. No acute bony findings. There is mild haziness of the mesenteric fat which is nonspecific with a few scattered small mesenteric lymph nodes IMPRESSION: 1. Multifocal areas of ground-glass consolidation in the lung bases consistent with COVID 19 pneumonia 2. Small hiatal hernia with an air-fluid level in the distal esophagus which may be related to reflux.. 3. Distended urinary bladder with mild ectasia of the renal collecting system on both sides 4. There is a small amount of free fluid in the pelvis. 5. Multiple unopacified bowel loops in the abdomen or pelvis which could obscure or mimic pathology. If symptoms persist, consider repeat exam with IV and oral contrast. Dictated by: Elbert Mclain MD 08/01/2020 05:51 Elbert Mclain MD in [facility] 08/01/2020 05:51
[2020-07-31 22:09] LABS: Basophils % 0.5 % (0.1-2.0); Eosinophils # 0.1 K/mm3 (0.0-0.4); Eosinophils % 0.9 % (0.1-12.0); Hematocrit 38.7 % (42.0-52.0); Hemoglobin 12.9 g/dL (14.1-18.0); Lymphocytes # 1.2 K/mm3 (0.7-4.5); Mean Corpuscular HGB Conc 33.4 g/dL (31.8-35.4); Mean Corpuscular Hemoglobin 28.6 pg (27.0-31.2); Mean Corpuscular Volume 85.9 fl (80-94); Mean Platelet Volume 8.6 fl (7.4-10.4); Monocytes # 0.4 K/mm3 (0.1-1.0); Monocytes % 5.7 % (1.7-9.3); Neutrophils # 4.6 K/mm3 (1.8-7.8); Platelet Count 280 K/mm3 (142-424); Red Blood Count 4.51 M/mm3 (4.60-6.20); White Blood Count 6.3 K/mm3 (4.8-10.8)
[2020-07-31 22:10] LABS: Chloride 100 mmol/L (98-107); Potassium 4.1 mmoL/L (3.5-5.1); Sodium 136 mmol/L (136-145)
[2020-07-31 22:13] LABS: Alanine Aminotransferase 22 U/L (12-78); Albumin/Globulin Ratio 1.1 (1.1-1.8); Alkaline Phosphatase 73 U/L (38-126); Amylase 44 U/L (30-110); Anion Gap 14.1 mEq/L (5-15); Aspartate Amino Transferase 34 U/L (17-59); Bilirubin,Total 0.3 mg/dl (0.2-1.3); Blood Urea Nitrogen 17 mg/dl (9-20); Calcium 8.7 mg/dl (8.4-10.2); Carbon Dioxide 26 mmol/L (22.0-30.0); Creatinine Clearance Estimated 75 mL/min (50-200); Estimated Glomerular Filt Rate 58 ml/min (>60); GFR (African American) 70 ML/MIN (>60); Globulin 3.5 g/dL (1.3-3.2); Lipase 47 U/L (23-300); Total Protein,Serum 7.5 g/dl (6.3-8.2)
[2020-07-31 22:22] LABS: C-Reactive Protein 1.9 mg/L (0-4)
[2020-07-31 22:31] LABS: Glucose 514 mg/dl (74-100)
[2020-07-31 22:35] LABS: Erythrocyte Sedimentation Rate 48 mm/hr (0-15)
[2020-07-31 22:37] LABS: Acetone, Serum (Rapid) None Detected (None Detect)
[2020-07-31 22:48] LABS: Hemoglobin A1C 9.5 % (4.0-6.0)
--- NOTE | 2020-07-31 23:15 | [facility].EDNVD ---
ED Disposition Clinical Impression: COVID-19 Diabetes mellitus, insulin dependent (IDDM), uncontrolled Qualifiers: Glycemic state: with hyperglycemia Qualified Code(s): E10.65 - Type 1 diabetes mellitus with hyperglycemia Disposition: Home, Self-Care Condition on Discharge: Good Instructions: DI for Nausea -- Adult Additional Instructions: fluids and call pcp in am Referrals: Sheri Davey APRN [Primary Care Provider] - - Critical Care Critical Care Time: No Attestation: On 07/31/20, the high probability of a clinically significant, sudden or life threatening deterioration of the following system(s) required my full and direct attention, intervention and personal management. The time I documented below is in addition to time spent performing reported procedures but includes the following listed in this critical care notation. Medical Decision Making - Medical Records Medical records reviewed: Yes: I reviewed the patient's medical records. - [place] Inquiry Pt receiving controlled substance: No Vital Signs: 07/31/20 21:49 07/31/20 23:50 Temperature 99.0 F Temperature Source Oral Pulse Rate [Right] 100 H 98 H Respiratory Rate 14 14 Blood Pressure [Right Arm] 188/107 H 191/102 H Blood Pressure Mean [Right Arm] 134 131 Blood Pressure Source [Right Arm] Automatic Cuff Blood Pressure Position [Right Arm] Supine 02 Sat by Pulse Oximetry 98 97 Oxygen Delivery Method Room Air Room Air - Lab Data Lab results reviewed: Yes: I reviewed the patient's lab results. Lab Results 07/31/20 21:30: WBC 6.3, RBC 4.51 L, Hgb 12.9 L, Hct 38.7 L, MCV 85.9, MCH 28.6, MCHC 33.4, RDW 13.0, Plt Count 280, MPV 8.6, Neut % (Auto) 74.0, Lymph % (Auto) 19.0, Menard % (Auto) 5.7, Eos % (Auto) 0.9, Baso % (Auto) 0.5, Neut # (Auto) 4.6, Lymph # (Auto) 1.2, Menard # (Auto) 0.4, Eos # (Auto) 0.1, Baso # (Auto) 0.0, ESR 48 H 07/31/20 21:30: Sodium 136, Potassium 4.1, Chloride 100, Carbon Dioxide 26, Anion Gap 14.1, BUN 17, Creatinine 1.40 H, Estimated Creat Clear 75, Estimated GFR 58 L, Est GFR ( Amer) 70, Glucose 514 H*, Calcium 8.7, Total Bilirubin 0.3, AST 34, ALT 22, Alkaline Phosphatase 73, C-Reactive Protein 1.9, Total Protein 7.5, Albumin 4.0, Globulin 3.5 H, Albumin/Globulin Ratio 1.1, Amylase 44, Lipase 47 07/31/20 21:30: Acetone Level None detected 07/31/20 21:30: Hemoglobin A1c 9.5 H Result diagrams: 07/31/20 21:30 07/31/20 21:30 Orders (Tests/Meds): ED MEDICATIONS Generic Name Dose Route Start Last Admin Trade Name Freq PRN Reason Stop Dose Admin Sodium Chloride 1,000 mls @ 999 mls/hr 07/31/20 22:15 07/31/20 22:16 Sod Chlor 0.9% 1000ml Bag IV 07/31/20 23:15 999 mls/hr .Q1H1M JENNY Administration Sodium Chloride 1,000 mls @ 999 mls/hr 08/01/20 00:45 08/01/20 00:42 Sod Chlor 0.9% 1000ml Bag IV 08/01/20 01:45 999 mls/hr .Q1H1M JENNY Administration Discontinued Medications Generic Name Dose Route Start Last Admin Trade Name Freq PRN Reason Stop Dose Admin Insulin Human Regular 5 unit 07/31/20 23:26 07/31/20 23:27 Insulin Human Regular 100 Units/Ml 10ml Vial IVP 07/31/20 23:27 5 unit ONCE ONE Administration Iopamidol 75 ml 07/31/20 23:17 07/31/20 23:19 Iopamidol-370 (76%);100ml Bottle IV 07/31/20 23:18 75 ml ONCE ONE Administration Ondansetron HCl 4 mg 08/01/20 00:35 08/01/20 00:42 Ondansetron 4mg/2ml Vial IV 08/01/20 00:36 4 mg ONCE ONE Administration Promethazine HCl 1 nilda 08/01/20 01:47 08/01/20 01:49 Promethazine 25mg Tablet Take Home Pack (10) PO 08/01/20 01:48 1 nilda ONCE ONE Administration Sodium Chloride 10 ml 07/31/20 23:17 07/31/20 23:18 Sodium Chloride 0.9% 10ml Syr (Rad Only) IV 07/31/20 23:18 10 ml ONCE ONE Administration ORDERS Category Date Time Status CT abdomen pelvis w con Stat Cat Scan 07/31/20 22:02 Taken Urinalysis and Microscopic Stat Lab 07/31/20 23:17 Ordered - CT Data CT Scan: Abdomen,
[2020-07-31 23:50] VITALS: BP 191/102; PULSE 98; RESP 14; O2SAT 97
[2020-08-01] VITALS: BP 173/95; PULSE 90; O2SAT 97
[2020-08-01 01:00] VITALS: BP 171/99; PULSE 94; O2SAT 97
[2020-08-01 02:04] VITALS: BP 171/99; PULSE 95; RESP 14; TEMP 37.2; O2SAT 98
== END 2020-08-01 02:08 | disposition home or self-care (01) ==
PROVIDERS: Emergency Provider Emergency Medicine; PCP Nurse Practitioner Family
DX: U07.1 COVID-19 (principal); E10.65 Type 1 diabetes mellitus with hyperglycemia; I10 Essential (primary) hypertension; E78.5 Hyperlipidemia, unspecified; F41.9 Anxiety disorder, unspecified; Z88.0 Allergy status to penicillin
CPT/HCPCS: 74177; 80053; 82009; 82150; 83036; 83690; 85025; 85651; 86140; 96365; 96366; 96375; 99283; J2405; Q9967

== ENCOUNTER → 2021-01-10 09:01 | Outpatient (CLI) | payer BC, SELFPAY ==
[2021-01-10 13:40] LABS: Albumin Level 3.8 g/dl (3.5-5.0); Anion Gap 13.1 mEq/L (5-15); Blood Urea Nitrogen 15 mg/dl (9-20); Carbon Dioxide 26 mmol/L (22.0-30.0); Chloride 103 mmol/L (98-107); Estimated Glomerular Filt Rate 46 ml/min (>60); GFR (African American) 56 ML/MIN (>60); Glucose 220 mg/dl (74-100); Phosphorous 4.8 mg/dl (2.5-4.5); Potassium 5.1 mmoL/L (3.5-5.1); Sodium 137 mmol/L (136-145)
[2021-01-10 13:45] LABS: Creatinine,Urine Random 89 mg/dL (Not Estab.)
[2021-01-10 14:21] LABS: Microalbumin/Creatinine Ratio 903.1
== END ==
PROVIDERS: Visit Provider Internal Medicine Nephrology
DX: N18.30 Chronic kidney disease, stage 3 unspecified (principal); E55.9 Vitamin D deficiency, unspecified
CPT/HCPCS: 36415; 80069; 82043; 82306; 82570

== ENCOUNTER → 2021-10-04 12:17 | Outpatient (CLI) | payer BC, SELFPAY ==
[2021-10-04 13:21] LABS: Albumin Level 3.6 g/dl (3.5-5.0); Anion Gap 9.1 mEq/L (5-15); Blood Urea Nitrogen 15 mg/dl (9-20); Calcium 8.8 mg/dl (8.4-10.2); Carbon Dioxide 27 mmol/L (22.0-30.0); Chloride 99 mmol/L (98-107); Estimated Glomerular Filt Rate 43 ml/min (>60); GFR (African American) 52 ML/MIN (>60); Glucose 344 mg/dl (74-100); Phosphorous 4.1 mg/dl (2.5-4.5); Potassium 5.1 mmoL/L (3.5-5.1); Sodium 130 mmol/L (136-145)
[2021-10-04 13:38] LABS: 25-OH Vitamin D, Total 23.9 ng/mL (30-100)
== END ==
PROVIDERS: Visit Provider Internal Medicine Nephrology
DX: N18.30 Chronic kidney disease, stage 3 unspecified (principal)
CPT/HCPCS: 36415; 80069; 82306

== ENCOUNTER → 2021-10-06 09:21 | Outpatient (POV) | payer BC, SELFPAY | PROVIDERS: Visit Provider Internal Medicine Nephrology | DX: Z00.00 Encounter for general adult medical examination without abnormal findings (principal) ==

== ENCOUNTER → 2022-05-12 12:35 | Outpatient (CLI) | payer BC, SELFPAY ==
[2022-05-12 12:59] LABS: Basophils # 0.1 K/mm3 (0-0.2); Eosinophils # 0.2 K/mm3 (0.0-0.4); Eosinophils % 3.8 % (0.1-12.0); Hematocrit 39.3 % (42.0-52.0); Hemoglobin 11.9 g/dL (14.1-18.0); Lymphocytes # 1.7 K/mm3 (0.7-4.5); Lymphocytes % 29.3 % (10-50); Mean Corpuscular HGB Conc 30.3 g/dL (31.8-35.4); Mean Corpuscular Hemoglobin 26.9 pg (27.0-31.2); Mean Platelet Volume 8.2 fl (7.4-10.4); Monocytes # 0.3 K/mm3 (0.1-1.0); Monocytes % 5.4 % (1.7-9.3); Neutrophils # 3.4 K/mm3 (1.8-7.8); Neutrophils % 59.6 % (37.0-80.0); Platelet Count 381 K/mm3 (142-424); Red Blood Count 4.42 M/mm3 (4.60-6.20); Red Cell Distribution Width 13.6 % (11.5-17.5); White Blood Count 5.7 K/mm3 (4.8-10.8)
[2022-05-12 13:08] LABS: Creatinine,Urine Random 150 mg/dL (Not Estab.)
[2022-05-12 13:32] LABS: Anion Gap 9.9 mEq/L (5-15); Blood Urea Nitrogen 13 mg/dl (9-20); Calcium 9.4 mg/dl (8.4-10.2); Carbon Dioxide 30 mmol/L (22.0-30.0); Chloride 105 mmol/L (98-107); Estimated Glomerular Filt Rate 38 ml/min (>60); GFR (African American) 46 ML/MIN (>60); Glucose 90 mg/dl (74-100); Phosphorous 3.9 mg/dl (2.5-4.5); Potassium 3.9 mmoL/L (3.5-5.1); Sodium 141 mmol/L (136-145)
[2022-05-12 13:44] LABS: Intact Parathyroid Hormone 51.8 pg/mL (7.5-53.5)
[2022-05-12 13:49] LABS: 25-OH Vitamin D, Total 50.1 ng/mL (30-100)
== END ==
PROVIDERS: PCP Internal Medicine; Visit Provider Internal Medicine Nephrology
DX: N18.32 Chronic kidney disease, stage 3b (principal)
CPT/HCPCS: 36415; 80069; 82043; 82306; 82570; 83970; 85025